=== PATIENT | female | born 1990 | race Caucasian/White ===

== ENCOUNTER 2016-05-27 12:59 | Emergency (ER) | payer OTHER ==
[2016-05-27 13:18] VITALS: BP 105/70
== END 2016-05-27 14:30 | disposition left against medical advice (07) ==
LOC: ED 12:59
DX: M25.531 Pain in right wrist (principal); M25.511 Pain in right shoulder; Z53.21 Procedure and treatment not carried out due to patient leaving prior to being seen by health care provider